=== PATIENT | male | born 1970 | race Hispanic/Latino ===

== ENCOUNTER 2018-08-07 19:17 | Emergency (ER) | payer BC ==
--- NOTE | 2018-08-07 19:58 | EDPHYS ---
Physician Documentation [facility] Name: Abhinav Wilson Age: 47 yrs Sex: Male : 1970 Arrival Date: 08/07/2018 Time: 19:20 Bed 11 Private MD: ED Physician Ezra Edward HPI: 08/07 20:00 This 47 yrs old Male presents to ER via Ambulatory with complaints of snw Laceration - finger. 20:00 Onset: The symptoms/episode began/occurred gradually, 4 week(s) ago, and became snw persistent. The patient has not experienced similar symptoms in the past. The patient has not recently seen a physician. area bleeds easily and annoys patient. Historical: - Allergies: 19:31 No Known Allergies; sr5 - Home Meds: 19:31 antibiotic? [Active]; sr5 - PMHx: 19:31 borderline HTN; sr5 - Immunization history:: Last tetanus immunization: up to date. - Social history:: Smoking status: Patient/guardian denies using tobacco, never smoked. - Ebola Screening: : Patient negative for fever greater than or equal to 101.5 degrees Fahrenheit, and additional compatible Ebola Virus Disease symptoms. ROS: 19:59 Constitutional: Negative for fever, chills, and weight loss, Eyes: Negative for injury, snw pain, redness, and discharge, ENT: Negative for injury, pain, and discharge, Neck: Negative for injury, pain, and swelling, Cardiovascular: Negative for chest pain, palpitations, and edema, Respiratory: Negative for shortness of breath, cough, wheezing, and pleuritic chest pain, Abdomen/GI: Negative for abdominal pain, nausea, vomiting, diarrhea, and constipation, Back: Negative for injury and pain, : Negative for injury, bleeding, discharge, and swelling, Skin: Negative for injury, rash, and discoloration, Neuro: Negative for headache, weakness, numbness, tingling, and seizure. 19:59 MS/extremity: Positive for injury or acute deformity, laceration, swelling, of the palmar aspect of proximal phalanx of right ring finger. Exam: 19:58 Constitutional: This is a well developed, well nourished patient who is awake, alert, snw and in no acute distress. Head/Face: Normocephalic, atraumatic. Eyes: Pupils equal round and reactive to light, extra-ocular motions intact. Lids and lashes normal. Conjunctiva and sclera are non-icteric and not injected. Cornea within normal limits. Periorbital areas with no swelling, redness, or edema. ENT: Nares patent. No nasal discharge, no septal abnormalities noted. Tympanic membranes are normal and external auditory canals are clear. Oropharynx with no redness, swelling, or masses, exudates, or evidence of obstruction, uvula midline. Mucous membranes moist. Neck: Trachea midline, no thyromegaly or masses palpated, and no cervical lymphadenopathy. Supple, full range of motion without nuchal rigidity, or vertebral point tenderness. No Meningismus. Chest/axilla: Normal chest wall appearance and motion. Nontender with no deformity. No lesions are appreciated. Cardiovascular: Regular rate and rhythm with a normal S1 and S2. No gallops, murmurs, or rubs. Normal PMI, no JVD. No pulse deficits. Respiratory: Lungs have equal breath sounds bilaterally, clear to auscultation and percussion. No rales, rhonchi or wheezes noted. No increased work of breathing, no retractions or nasal flaring. Abdomen/GI: Soft, non-tender, with normal bowel sounds. No distension or tympany. No guarding or rebound. No evidence of tenderness throughout. Back: No spinal tenderness. No costovertebral tenderness. Full range of motion. MS/ Extremity: Pulses equal, no cyanosis. Neurovascular intact. Full, normal range of motion. Neuro: Awake and alert, GCS 15, oriented to person, place, time, and situation. Cranial nerves II-XII grossly intact. Motor strength 5/5 in all extremities. Sensory grossly intact. Cerebellar exam normal. Normal gait. 19:58 Skin: Appearance: normal except for affected area, injury, pyogenic granuloma to dorman surface of right ring finger. Vital Signs: 19:31 BP 160 / 101; Pulse 77; Resp 18; Temp 97.3; Pulse Ox 100% ; Weight 90.72 kg (R); Height sr5 5 ft. 11 in. (180.34 cm); Pain 0/10; 19:31 Body Mass Index 27.89 (90.72 kg, 180.34 cm) sr5 MDM: 19:49 Patient medically screened. snw 20:00 Data reviewed: vital signs, nurses notes. Data interpreted: Pulse oximetry: on room air snw is 100 %. Interpretation: normal. Counseling: I had a detailed discussion with the patient and/or guardian regarding: the historical points, exam findings, and any diagnostic results supporting the discharge/admit diagnosis, the presence of at least one elevated blood pressure reading (>120/80) during this emergency department visit, to return to the emergency department if symptoms worsen or persist or if there are any questions or concerns that arise at home. Special discussion: I have referred the patient to see his PCP for further evaluation of high blood pressure. Based on the history and exam findings, there is no indication for further emergent testing or inpatient evaluation. I discussed with the patient/guardian the need to see the hand specialist for further evaluation of the symptoms. I discussed with the patient/guardian the need to see the primary care provider for further evaluation of the symptoms. Administered Medications: No medications were administered Disposition: 20:43 Co-signature as Attending Physician, Ezra Edward MD. rn Disposition: 08/07/18 19:58 Discharged to Home. Impression: Pyogenic granuloma - right ring finger. - Condition is Stable. - Discharge Instructions: Wound Care. - Prescriptions for Bactrim DS 800- 160 mg Oral Tablet - take 1 tablet by ORAL route every 12 hours for 5 days; 10 tablet. - Medication Reconciliation Form, Thank You Letter, Antibiotic Education, Prescription Opioid Use form. - Work release form (08/07/18 20:30). snw - Follow up: Saúl Peace; When: 2 - 3 days; Reason: Worsening of condition. Follow up: Brock Montgomery; When: 2 - 3 days; Reason: Recheck today's complaints, Continuance of care. Signatures: Page Ramey, SOIL SCIENTIST-C SOIL SCIENTIST-Csnw Ezra Edward MD MD rn Jackson, Darwin RN RN sr5 Jean-Claude Degroot RN RN mg2 Corrections: (The following items were deleted from the chart) 20:17 19:58 08/07/2018 19:58 Discharged to Home. Impression: Pyogenic granuloma - right ring mg2 finger. Condition is Stable. Discharge Instructions: Wound Care. Prescriptions for Bactrim DS 800-160 mg Oral Tablet - take 1 tablet by ORAL route every 12 hours for 5 days; 10 tablet. and Forms are Medication Reconciliation Form, Thank You Letter, Antibiotic Education, Prescription Opioid Use. Follow up: Saúl Peace; When: 2 - 3 days; Reason: Worsening of condition. Follow up: Brock Montgomery; When: 2 - 3 days; Reason: Recheck today's complaints, Continuance of care. snw
--- NOTE | 2018-08-07 19:58 | ER ---
Nurse's Notes [facility] Name: Abhinav Wilson Age: 47 yrs Sex: Male : 1970 Arrival Date: 08/07/2018 Time: 19:20 Bed 11 Private MD: Diagnosis: Pyogenic granuloma-right ring finger Presentation: 08/07 19:29 Presenting complaint: Patient states: wound to RIGHT ring finger sustained approx 5 sr5 weeks ago "initially a blood blister, then I pulled the skin, then this started to grow out like this". Raised area noted, bleeding controlled. Currently taking Cephalexin 500mg for this wound, tetanus UTD. Transition of care: patient was not received from another setting of care. Complicating Factors: There are no complicating factors for this patient. Onset of symptoms. 19:29 Method Of Arrival: Ambulatory sr5 19:29 Acuity: JENNY 3 sr5 20:16 Risk Assessment: Do you want to hurt yourself or someone else? Patient reports no mg2 desire to harm self or others. Initial Sepsis Screen: Does the patient meet any 2 criteria? No. Patient's initial sepsis screen is negative. Does the patient have a suspected source of infection? No. Patient's initial sepsis screen is negative. Care prior to arrival: None. Triage Assessment: 19:31 General: Appears in no apparent distress. Behavior is calm, cooperative. Pain: sr5 Complains of pain in palmar aspect of middle phalanx of right ring finger Pain currently is 0 out of 10 on a pain scale. Neuro: No deficits noted. Cardiovascular: No deficits noted. Respiratory: No deficits noted. Injury Description: raised area to RIGHT ring finger. Historical: - Allergies: 19:31 No Known Allergies; sr5 - Home Meds: 19:31 antibiotic? [Active]; sr5 - PMHx: 19:31 borderline HTN; sr5 - Immunization history:: Last tetanus immunization: up to date. - Social history:: Smoking status: Patient/guardian denies using tobacco, never smoked. - Ebola Screening: : Patient negative for fever greater than or equal to 101.5 degrees Fahrenheit, and additional compatible Ebola Virus Disease symptoms. Screenin:41 Abuse screen: Denies threats or abuse. Denies injuries from another. Nutritional mg2 screening: No deficits noted. Tuberculosis screening: No symptoms or risk factors identified. Fall Risk None identified. Assessment: 20:15 General: Appears in no apparent distress. comfortable, Behavior is calm, cooperative. mg2 Pain: Complains of pain in right hand and palmar aspect of middle phalanx of right ring finger. Musculoskeletal: Circulation, motion, and sensation intact. Injury Description: open wound in the hand/ with tissue protrusion. 20:17 Injury Description: Laceration is clean, not bleeding. mg2 Vital Signs: 19:31 BP 160 / 101; Pulse 77; Resp 18; Temp 97.3; Pulse Ox 100% ; Weight 90.72 kg (R); Height sr5 5 ft. 11 in. (180.34 cm); Pain 0/10; 19:31 Body Mass Index 27.89 (90.72 kg, 180.34 cm) sr5 ED Course: 19:20 Patient arrived in ED. am2 19:31 Triage completed. sr5 19:31 Arm band placed on. sr5 19:40 Jean-Claude Degroot, [place] is Primary Nurse. mg2 19:44 Page Ramey FNP-C is [facility]. snw 19:44 Ezra Edward MD is Attending Physician. snw 19:57 Saúl Peace MD is Referral Physician. snw 19:57 Brock Montgomery MD is Referral Physician. snw 20:15 No provider procedures requiring assistance completed. Patient did not have IV access mg2 during this emergency room visit. 20:16 Dressings: non-adherent dressing. mg2 20:17 Patient has correct armband on for positive identification. mg2 Administered Medications: No medications were administered Outcome: 19:58 Discharge ordered by MD. snw 20:17 Discharged to home ambulatory, with family. mg2 20:17 Condition: stable 20:17 Discharge instructions given to patient, family, Instructed on discharge instructions, follow up and referral plans. medication usage, Demonstrated understanding of instructions, follow-up care, medications, Prescriptions given X 1. 20:17 Patient left the ED. mg2 Signatures: Page Ramey FNP-C FNP-Darwin Keating RN RN sr5 Martha Chaves am2 Jean-Claude Degroot RN RN mg2 Corrections: (The following items were deleted from the chart) 19:33 19:29 Presenting complaint: Patient states: wound to RIGHT ring finger sustained approx sr5 5 weeks ago "initially a blood blister, then I pulled the skin, then this started to grow out like this". Raised area noted, bleeding controlled. Currently taking antibiotics for this wound, tetanus UTD. sr5
== END 2018-08-07 20:17 | disposition home or self-care (01) ==
LOC: ER 19:17
DX: L98.0 Pyogenic granuloma (principal); I10 Essential (primary) hypertension
CPT/HCPCS: 99282